=== PATIENT | female | born 1955 | race Caucasian/White ===

== ENCOUNTER 2020-03-01 11:44 | Emergency (ER) | payer OTHER, SELFPAY ==
[2020-03-01 11:56] VITALS: BP 123/70; PULSE 81; RESP 16; TEMP 37.3; O2SAT 98
--- NOTE | 2020-03-01 12:06 | ED.URI ---
HPI - URI/Sore Throat General Chief Complaint: Ear Stated Complaint: Ear Pain Time Seen by Provider: 03/01/20 11:55 Source: patient and RN notes reviewed Mode of arrival: ambulatory Limitations: no limitations History of Present Illness HPI Narrative: 64 old female presents with concern for right ear pain that started Thursday. Reports she is up with her windows open, woke up with sinus congestion, drainage, right sore throat, right ear pain. Reports she has been taking Mucinex DM with occasional relief. She denies fever, malaise, cough, shortness of breath. Denies any known sick contacts MD elicited complaint: other (Ear pain) Related Data Home Medications Medication Instructions Recorded Confirmed citalopram [Celexa] 10 mg PO BID 03/01/20 03/01/20 Allergies Allergy/AdvReac Type Severity Reaction Status Date / Time Shrimp Allergy Unknown ALLERGIC Uncoded 03/01/20 11:59 TO SHELLFISH Review of Systems Review of Systems: Narrative: CONSTITUTIONAL: Denies malaise, chills, sweats, or fever. EYES: Denies visual changes, redness, or discharge. ENT: Reports rhinorrhea, congestion, right ear pain, sore throat. Denies sinus pain. CARDIOVASCULAR: Denies chest pain, palpitations, or edema. RESPIRATORY: Denies cough or dyspnea. GASTROINTESTINAL: Denies abdominal pain, nausea, vomiting, diarrhea SKIN: Denies rash or itching. MUSCULOSKELETAL: Denies myalgia. NEUROLOGIC: Denies headache. All systems reviewed & are unremarkable except as noted in HPI and below PMFSH Social History Social History Gender identity (if verbalized by the patient): Female Comments At time of signature, agree with nursing past medical, surgical, social and family history. There is no relevant family history pertinent to the presenting complaint Exam Narrative: Exam Narrative: GENERAL: Well-appearing, well-nourished, and in no acute distress. HEAD: Normocephalic EYES: PERRLA, conjunctivae clear ENT: Nares clear, turbinates edematous and erythematous, clear discharge. Mucous membranes moist. TM pearly newton with sharp light reflex bilaterally; no tragal tenderness. Oropharynx mildly erythematous without lesions. Tonsils not enlarged and without exudate, no drooling, no hoarseness, no trismus, uvula midline. NECK: Supple. No lymphadenopathy CHEST: Clear to auscultation, breath sounds equal. No wheezing, rhonchi, rales, or stridor. No respiratory distress, speaks in full sentences. HEART: Regular rate and rhythm. No murmur heard. SKIN: Warm, dry, no rash. NEURO: Alert and oriented x3. PSYCH: Normal mood and affect Course Course Emergency Course: Patient is aware of diagnosis, understands and agrees to treatment plan. Anticipatory guidance given. Patient agrees to follow-up as directed and is aware of reasons to seek care at the emergency department. Portions of this record may have been created with voice recognition software Vital Signs Vital signs: Vital Signs Temperature 99.2 F 03/01/20 11:56 Pulse Rate 81 03/01/20 11:56 Respiratory Rate 16 03/01/20 11:56 Blood Pressure 123/70 03/01/20 11:56 Pulse Oximetry 98 03/01/20 11:56 Temperature 99.2 F 03/01/20 11:56 Pulse Rate 81 03/01/20 11:56 Respiratory Rate 16 03/01/20 11:56 Blood Pressure 123/70 03/01/20 11:56 Pulse Oximetry 98 03/01/20 11:56 Reviewed. MDM - URI/Sore Throat MDM Narrative Medical decision making narrative: Differential diagnosis considered: Alarcon virus, strep pharyngitis, allergic rhinitis, upper respiratory tract infection, sinusitis, rhinosinusitis, nasopharyngitis. viral pharyngitis, otitis media, otitis externa, pneumonia, bronchitis, viral cough syndrome, viral syndrome, and influenza. Exam findings show no acute concerns or changes; patient is non-toxic appearing and is in no distress. Patient is appropriate for outpatient treatment and follow-up. Lab Data Labs: Strep Screen Presumptive Negative
== END 2020-03-01 12:21 | disposition home or self-care (01) ==
PROVIDERS: Emergency Provider Nurse Practitioner
DX: J06.9 Acute upper respiratory infection, unspecified (principal); F41.9 Anxiety disorder, unspecified; F32.9 Major depressive disorder, single episode, unspecified
CPT/HCPCS: 87081; 87880; 99213; G0463